=== PATIENT | male | born 1995 | race Caucasian/White ===

== ENCOUNTER 2021-05-27 12:47 | Inpatient (IN) | payer OTHER ==
[~2021-05-27] VITALS: Ht 177.8 cm; Wt 91.6 kg
[2021-05-27 17:30] VITALS: BP 137/79
[2021-05-27] MEDS: VANCOMYCIN HCL 125 MG/2.5 ML SOLUTION ORAL.SYG PO SCH (18:56)
[2021-05-27] MEDS: MINOCYCLINE HCL 100 MG CAPSULE PO SCH (18:56)
[2021-05-27] MEDS: ACETAMINOPHEN 325 MG TABLET PO SCH (18:56)
[2021-05-27] MEDS: ETHYL ALCOHOL 62% ANTISEPTIC NASAL INHALANT 0.6 ML AMPUL NASAL SCH (20:23)
[2021-05-27] MEDS: GABAPENTIN 300 MG CAPSULE PO SCH (20:23)
[2021-05-27] MEDS ORDERED: SENNA 187 MG TABLET PO SCH (21:00)
[2021-05-27] MEDS ORDERED: DOCUSATE SODIUM 100 MG CAPSULE PO SCH (21:00)
[2021-05-28] MEDS: VANCOMYCIN HCL 125 MG/2.5 ML SOLUTION ORAL.SYG PO SCH ×4 (00:17→17:46)
[2021-05-28] MEDS: ACETAMINOPHEN 325 MG TABLET PO SCH ×4 (00:17→19:03)
[2021-05-28 00:49] VITALS: BP 129/69
[2021-05-28 06:56] LABS: EOSINOPHILS % (AUTO) 5.9 % (1.0-6.0); HEMATOCRIT 35.1 % (41-53); HEMOGLOBIN 11.6 g/dL (13.5-17.5); LYMPHOCYTES # (AUTO) 1.6 K/uL (1.0-4.8); LYMPHOCYTES % (AUTO) 12.4 % (22.0-44.0); MEAN CORPUSCULAR HEMOGLOBIN 29.3 pg (26.0-34.0); MEAN CORPUSCULAR HGB CONC 33.2 G/dL (31.0-37.0); MEAN CORPUSCULAR VOLUME 88 fL (80-100); MONOCYTES # (AUTO) 1.5 K/uL (0.1-1.0); MONOCYTES % (AUTO) 11.3 % (2.0-9.0); NEUTROPHILS # (AUTO) 9.1 K/uL (1.8-7.7); NEUTROPHILS % (AUTO) 69.4 % (40.0-70.0); PLATELET COUNT (AUTO) 453 K/uL (150-450); RED BLOOD CELL COUNT(AUTO) 3.97 MIL/uL (4.50-5.90); RED CELL DISTRIBUTION WIDTH 13.9 % (11.5-14.5)
[2021-05-28 07:14] LABS: ALANINE AMINOTRANSFERASE 221 U/L (12-78); ALBUMIN 2.8 g/dL (3.4-5.0); ALKALINE PHOSPHATASE 241 U/L (46-116); ANION GAP 9 mmol/L (8-16); ASPARTATE AMINOTRANSFERASE 52 U/L (15-37); BILIRUBIN,TOTAL 0.6 mg/dL (0.1-1.0); CALCIUM, TOTAL 9.2 mg/dL (8.8-10.5); CARBON DIOXIDE 27 mmol/L (22-29); CHLORIDE 97 mmol/L (98-107); CREATININE 0.91 mg/dL (0.60-1.30); GLOMERULAR FILTR. RATE CALC > 60 mL/min (>60); GLUCOSE,RANDOM 97 mg/dL (70-110); POTASSIUM 4.3 mmol/L (3.5-5.1); SODIUM SERUM 133 mmol/L (136-145); TOTAL PROTEIN, SERUM 7.1 g/dL (6.4-8.2); UREA NITROGEN, BLOOD 15 mg/dL (7-18)
[2021-05-28 08:02] VITALS: BP 116/60
[2021-05-28] MEDS: MINOCYCLINE HCL 100 MG CAPSULE PO SCH ×2 (08:18→15:49)
[2021-05-28] MEDS: ETHYL ALCOHOL 62% ANTISEPTIC NASAL INHALANT 0.6 ML AMPUL NASAL SCH ×2 (08:18→21:10)
[2021-05-28] MEDS: GABAPENTIN 300 MG CAPSULE PO SCH ×3 (08:18→21:12)
[2021-05-28] MEDS: ENOXAPARIN SODIUM 60 MG/0.6 ML PF SYRINGE SQ SCH (08:20)
[2021-05-28 15:58] VITALS: BP 124/69
[2021-05-28] MEDS: MELATONIN 5 MG TABLET PO PRN (21:12)
[2021-05-29] MEDS: VANCOMYCIN HCL 125 MG/2.5 ML SOLUTION ORAL.SYG PO SCH ×4 (00:32→17:02)
[2021-05-29] MEDS: ACETAMINOPHEN 325 MG TABLET PO SCH ×4 (00:32→19:52)
[2021-05-29 00:49] VITALS: BP 122/59
[2021-05-29] MEDS: GABAPENTIN 300 MG CAPSULE PO SCH ×3 (08:30→19:51)
[2021-05-29] MEDS: MINOCYCLINE HCL 100 MG CAPSULE PO SCH ×2 (08:30→17:01)
[2021-05-29] MEDS: ETHYL ALCOHOL 62% ANTISEPTIC NASAL INHALANT 0.6 ML AMPUL NASAL SCH ×2 (08:30→19:54)
[2021-05-29] MEDS: ENOXAPARIN SODIUM 60 MG/0.6 ML PF SYRINGE SQ SCH (08:30)
[2021-05-29 11:49] VITALS: BP 112/57
[2021-05-29 16:30] VITALS: BP 115/76
[2021-05-30] MEDS: ACETAMINOPHEN 325 MG TABLET PO SCH ×4 (00:33→20:35)
[2021-05-30] MEDS: VANCOMYCIN HCL 125 MG/2.5 ML SOLUTION ORAL.SYG PO SCH ×5 (00:33→23:06)
[2021-05-30 02:47] VITALS: BP 118/59
[2021-05-30 08:00] VITALS: BP 113/65
[2021-05-30] MEDS: ENOXAPARIN SODIUM 60 MG/0.6 ML PF SYRINGE SQ SCH (08:14)
[2021-05-30] MEDS: GABAPENTIN 300 MG CAPSULE PO SCH ×3 (08:15→20:34)
[2021-05-30] MEDS: MINOCYCLINE HCL 100 MG CAPSULE PO SCH ×2 (08:15→16:13)
[2021-05-30] MEDS: OxyCODONE HCL 5 MG IR TABLET PO PRN (08:16)
[2021-05-30] MEDS: ETHYL ALCOHOL 62% ANTISEPTIC NASAL INHALANT 0.6 ML AMPUL NASAL SCH ×2 (08:57→20:36)
[2021-05-30 16:30] VITALS: BP 107/61
[2021-05-31] MEDS ORDERED: ENOX40DI9 SQ (04:08)
[2021-05-31] MEDS ORDERED: GABA-1181 PO (04:08)
[2021-05-31] MEDS: ACETAMINOPHEN 325 MG TABLET PO SCH ×5 (05:49→23:11)
[2021-05-31] MEDS: VANCOMYCIN HCL 125 MG/2.5 ML SOLUTION ORAL.SYG PO SCH ×4 (05:49→23:10)
[2021-05-31 06:00] VITALS: BP 118/68
[2021-05-31 07:02] LABS: ALANINE AMINOTRANSFERASE 84 U/L (12-78); ALBUMIN 2.9 g/dL (3.4-5.0); ALKALINE PHOSPHATASE 181 U/L (46-116); ANION GAP 10 mmol/L (8-16); ASPARTATE AMINOTRANSFERASE 19 U/L (15-37); BILIRUBIN,TOTAL 0.4 mg/dL (0.1-1.0); CARBON DIOXIDE 28 mmol/L (22-29); CHLORIDE 104 mmol/L (98-107); CREATININE 0.93 mg/dL (0.60-1.30); GLOMERULAR FILTR. RATE CALC > 60 mL/min (>60); GLUCOSE,RANDOM 92 mg/dL (70-110); SODIUM SERUM 142 mmol/L (136-145); UREA NITROGEN, BLOOD 15 mg/dL (7-18)
[2021-05-31] MEDS: GABAPENTIN 300 MG CAPSULE PO SCH ×3 (07:30→20:37)
[2021-05-31] MEDS: ENOXAPARIN SODIUM 60 MG/0.6 ML PF SYRINGE SQ SCH (07:31)
[2021-05-31] MEDS: ETHYL ALCOHOL 62% ANTISEPTIC NASAL INHALANT 0.6 ML AMPUL NASAL SCH ×2 (07:36→20:36)
[2021-05-31 08:00] VITALS: BP 118/60
[2021-05-31] MEDS: OxyCODONE HCL 5 MG IR TABLET PO PRN (08:48)
[2021-05-31 16:03] VITALS: BP 101/61
[2021-05-31] MEDS: MELATONIN 5 MG TABLET PO PRN (20:37)
[2021-05-31 23:10] VITALS: BP 104/53
[2021-06-01 02:06] LABS: HEPATITIS C AB (EIA) <0.1 s/co ratio (0.0-0.9)
[2021-06-01] MEDS: ACETAMINOPHEN 325 MG TABLET PO SCH ×4 (06:04→22:59)
[2021-06-01] MEDS: VANCOMYCIN HCL 125 MG/2.5 ML SOLUTION ORAL.SYG PO SCH ×4 (06:04→22:59)
[2021-06-01] MEDS: ENOXAPARIN SODIUM 60 MG/0.6 ML PF SYRINGE SQ SCH (08:14)
[2021-06-01] MEDS: GABAPENTIN 300 MG CAPSULE PO SCH ×3 (08:15→20:30)
[2021-06-01] MEDS: ETHYL ALCOHOL 62% ANTISEPTIC NASAL INHALANT 0.6 ML AMPUL NASAL SCH ×2 (08:15→20:30)
[2021-06-01 09:25] VITALS: BP 113/53
[2021-06-01 12:52] LABS: BASOPHILS % (AUTO) 1.3 % (0.0-2.0); EOSINOPHILS % (AUTO) 4.8 % (1.0-6.0); HEMATOCRIT 35.5 % (41-53); HEMOGLOBIN 11.7 g/dL (13.5-17.5); LYMPHOCYTES # (AUTO) 1.8 K/uL (1.0-4.8); MEAN CORPUSCULAR HEMOGLOBIN 29.5 pg (26.0-34.0); MEAN CORPUSCULAR HGB CONC 33.1 G/dL (31.0-37.0); MEAN CORPUSCULAR VOLUME 89 fL (80-100); MONOCYTES # (AUTO) 0.7 K/uL (0.1-1.0); MONOCYTES % (AUTO) 5.9 % (2.0-9.0); NEUTROPHILS # (AUTO) 8.6 K/uL (1.8-7.7); PLATELET COUNT (AUTO) 488 K/uL (150-450); RED BLOOD CELL COUNT(AUTO) 3.98 MIL/uL (4.50-5.90)
[2021-06-01 16:02] VITALS: BP 126/62
[2021-06-01] MEDS: MELATONIN 5 MG TABLET PO PRN (20:30)
[2021-06-02] VITALS: BP 117/60
[2021-06-02] MEDS ORDERED: ACET650S24 PR ×2 (02:05→02:09)
[2021-06-02] MEDS: ACETAMINOPHEN 325 MG TABLET PO SCH ×4 (05:52→23:00)
[2021-06-02] MEDS: VANCOMYCIN HCL 125 MG/2.5 ML SOLUTION ORAL.SYG PO SCH ×4 (05:52→22:59)
[2021-06-02] MEDS: ETHYL ALCOHOL 62% ANTISEPTIC NASAL INHALANT 0.6 ML AMPUL NASAL SCH ×2 (08:23→20:44)
[2021-06-02] MEDS: GABAPENTIN 300 MG CAPSULE PO SCH ×3 (08:23→20:44)
[2021-06-02] MEDS: ENOXAPARIN SODIUM 60 MG/0.6 ML PF SYRINGE SQ SCH (08:23)
[2021-06-02 08:51] VITALS: BP 109/51
[2021-06-02 16:02] VITALS: BP 123/56
[2021-06-02] MEDS: MELATONIN 5 MG TABLET PO PRN (20:44)
[2021-06-03] VITALS: BP 119/63
[2021-06-03] MEDS: VANCOMYCIN HCL 125 MG/2.5 ML SOLUTION ORAL.SYG PO SCH (06:12)
[2021-06-03] MEDS: ACETAMINOPHEN 325 MG TABLET PO SCH (06:12)
[2021-06-03] MEDS ORDERED: ASPI-989 PO (07:06)
[2021-06-03] MEDS ORDERED: ACET-2247 PO (07:17)
[2021-06-03] MEDS: ETHYL ALCOHOL 62% ANTISEPTIC NASAL INHALANT 0.6 ML AMPUL NASAL SCH (07:24)
[2021-06-03] MEDS: ENOXAPARIN SODIUM 60 MG/0.6 ML PF SYRINGE SQ SCH (07:24)
[2021-06-03] MEDS: GABAPENTIN 300 MG CAPSULE PO SCH (07:24)
[2021-06-03 08:01] VITALS: BP 116/69
== END 2021-06-03 08:40 | disposition home or self-care (01) | DRG 563 ==
LOC: 2WR 16:52 → OBSVTOIN 16:52
PROVIDERS: ADMIT Physical Medicine & Rehabilitation; ATTEND Physical Medicine & Rehabilitation
DX: S82.51XA Displaced fracture of medial malleolus of right tibia, initial encounter for closed fracture (principal); E46 Unspecified protein-calorie malnutrition; E87.1 Hypo-osmolality and hyponatremia; M48.56XA Collapsed vertebra, not elsewhere classified, lumbar region, initial encounter for fracture; A04.72 Enterocolitis due to Clostridium difficile, not specified as recurrent; Z20.822 Contact with and (suspected) exposure to COVID-19; G47.00 Insomnia, unspecified; S82.852A Displaced trimalleolar fracture of left lower leg, initial encounter for closed fracture; D64.9 Anemia, unspecified; S92.102A Unspecified fracture of left talus, initial encounter for closed fracture; V89.2XXA Person injured in unspecified motor-vehicle accident, traffic, initial encounter; Z78.9 Other specified health status; Y93.89 Activity, other specified; Y92.89 Other specified places as the place of occurrence of the external cause; Y99.8 Other external cause status; Z68.29 Body mass index [BMI] 29.0-29.9, adult
CPT/HCPCS: 80053; 80074; 85025; 87081; 97110; 97150; 97162; 97165; 97530; 97535; 99366; J1650; Q9967